=== PATIENT | male | born 1995 | race Caucasian/White ===

== ENCOUNTER 2021-12-29 19:16 | Emergency (ER) | payer BC ==
[2021-12-29] MEDS ORDERED: Ketorolac 30 MG/ML SDV IM ONE (19:31)
== END 2021-12-29 20:40 | disposition home or self-care (01) ==
LOC: MW.ED 19:16
DX: M79.671 Pain in right foot (principal); Z79.899 Other long term (current) drug therapy
CPT/HCPCS: 73630; 99283; J1885; 99282

== ENCOUNTER 2022-02-23 17:57 | Emergency (ER) | payer BC ==
[2022-02-23] MEDS ORDERED: Lidocaine 1% PF 2 ML SDV INJECT ONE (18:41)
== END 2022-02-23 19:28 | disposition home or self-care (01) ==
LOC: MW.ED 17:57
DX: S67.195A Crushing injury of left ring finger, initial encounter (principal); W20.8XXA Other cause of strike by thrown, projected or falling object, initial encounter
CPT/HCPCS: 12001; 73140-26-F3; 73140-F3; 99283